=== PATIENT | female | born 1970 | race American Indian/Alaskan Native ===

== ENCOUNTER 2020-10-19 16:26 | Emergency (ER) | payer SELFPAY ==
[2020-10-19 17:26] LABS: Basophils % (Auto) 0.5 % (0.0-1.8); Eosinophils % (Auto) 0.2 % (0.0-4.3); Hematocrit 42.6 % (30.3-42.9); Hemoglobin 14.5 gm/dl (10.1-14.3); Lymphocytes # (Auto) 1.4 K/mm3 (1.2-5.4); Lymphocytes % (Auto) 15.5 % (13.4-35.0); Mean Corpuscular HGB Conc 34 % (30-34); Mean Corpuscular Volume 93 fl (79-97); Monocytes # (Auto) 0.3 K/mm3 (0.0-0.8); Monocytes % (Auto) 3.1 % (0.0-7.3); Platelet Count 272 K/mm3 (140-440); Red Blood Count 4.58 M/mm3 (3.65-5.03); Red Cell Distribution Width 14.4 % (13.2-15.2)
[2020-10-19 17:47] LABS: Alanine Aminotransferase 13 units/L (7-56); Albumin 4.9 g/dL (3.9-5); Blood Urea Nitrogen 7 mg/dL (7-17); Calcium 9.2 mg/dL (8.4-10.2); Hemolysis Index 171
[2020-10-19 17:51] LABS: BUN/Creatinine Ratio 14
[2020-10-19] MEDS ORDERED: dexAMETHasone 20 MG/5 ML VIAL IV ONE (23:35)
[2020-10-19] MEDS ORDERED: ACETAMINOPHEN 325 MG TAB PO ONE (23:35)
[2020-10-19] MEDS ORDERED: BUTALB/ACETAMINOPHEN/CAFFEINE TAB PO ONE (23:35)
[2020-10-19] MEDS ORDERED: ONDANSETRON 4 MG ODT TAB PO ONE (23:36)
--- NOTE | 2020-10-19 23:37 | Emergency Department Report ---
<TIERA ALDRICH III Ankush - Last Filed: 10/20/20 02:05> ED General Adult HPI - General Chief complaint: Headache Stated complaint: HEADACHE Time Seen by Provider: 10/19/20 23:24 - Related Data Previous Rx's Medication Instructions Recorded Last Taken Type Aspirin [Aspirin BABY CHEW TAB] 81 mg PO QDAY #30 tab.chew 12/12/14 Unknown Rx Famotidine [Pepcid] 20 mg PO BID #30 tablet 12/12/14 Unknown Rx Metoprolol [Lopressor TAB] 6.25 mg PO BID #30 tablet 12/12/14 Unknown Rx Nitroglycerin [Nitrostat] 0.4 mg SL Q5M PRN #10 tab 12/12/14 Unknown Rx Rosuvastatin (Nf) [Crestor] 20 mg PO QHS #30 tablet 12/12/14 Unknown Rx lisinopriL [Zestril TAB] 5 mg PO QDAY #30 tablet 12/12/14 Unknown Rx Allergies Allergy/AdvReac Type Severity Reaction Status Date / Time adhesive Allergy Swelling Verified 12/12/14 11:51 ED Past Medical Hx - Medications Home Medications: Home Medications Medication Instructions Recorded Confirmed Last Taken Type Aspirin [Aspirin BABY CHEW TAB] 81 mg PO QDAY #30 tab.chew 12/12/14 Unknown Rx Famotidine [Pepcid] 20 mg PO BID #30 tablet 12/12/14 Unknown Rx Metoprolol [Lopressor TAB] 6.25 mg PO BID #30 tablet 12/12/14 Unknown Rx Nitroglycerin [Nitrostat] 0.4 mg SL Q5M PRN #10 tab 12/12/14 Unknown Rx Rosuvastatin (Nf) [Crestor] 20 mg PO QHS #30 tablet 12/12/14 Unknown Rx lisinopriL [Zestril TAB] 5 mg PO QDAY #30 tablet 12/12/14 Unknown Rx ED Course - Reevaluation(s) Reevaluation #1: I reviewed the findings and management of this patient in real-time and I have personally seen and examined this patient and participated in the decision making for this patient with the midlevel. Patient is a 49-year-old female that presents emergency room for headache and dizziness. Patient states her headache is severe. I examined the patient. Patient has a normal pupillary response, pupils are PERRL. CV exam is normal and has a normal S1 and S2 and no murmurs. Lung sounds are clear to auscultation. Patient's head CT shows a cerebellar bleed. I discussed the case with our neurosurgeon already. I discussed the plan of care with the patient and the patient agrees with plan of care and transfer. The midlevel will discuss the case with a receiving hospital. Patient given a gram of Keppra. Patient is already been started on her nicardipine drip. Patient will be given Dilaudid for her pain. I discussed all results and clinical findings with patient. I discussed plan of care with patient. Patient agrees with plan of care. Patient is stable for transfer. 10/20/20 01:26 Reevaluation #2: Patient's blood pressure is improving. Patient states her pain is better. Patient is ready for transfer. Patient has been accepted. 10/20/20 02:16 - Consultations Consultation #1: I discussed the case with our neurosurgeon, Dr. Schulz. Dr. Schulz states that the patient needs to be transferred and keep a blood pressure less than 140 and give the patient a gram of Keppra. 10/20/20 01:01 ED Medical Decision Making - Lab Data Result diagrams: 10/19/20 17:13 10/19/20 17:13 Critical Care Time: Yes Critical care time in (mins) excluding proc time.: 35 Critical Care Time: 35 minutes ED Disposition Clinical Impression: Hemorrhagic cerebellum, Acute headache Disposition: [id number] ANOTHER TYPE HLTHCARE Condition: Stable Referrals: [facility] KARLA [Primary Care Provider] - 3-5 Days <MARCELO COYNE - Last Filed: 10/20/20 06:29> ED General Adult HPI - General Source: patient Mode of arrival: Ambulatory Limitations: No Limitations - History of Present Illness Initial comments: 49-year-old -[place] female presents with complaints of headache and dizziness x today. Patient reports she was at work and suddenly started to feel as if she was getting overheated and dizzy. She reports the headache started shortly after. She describes the headache as pounding and in the frontal portion of her head. Patient denies vision changes, numbness/tingling/weakness in her limbs, confusion, memory loss, or difficulty with speech/ambulation. No prior history of migraines per patient. She does report some nausea. Patient also denies any head injuries, fever/chills/sweats, or neck pain/stiffness. She admits to history of hypertension, however states she was taken off of her blood pressure medications by her PCP 6 months ago after losing weight. Severity scale (0 -10): 10 Quality: constant Improves with: movement Treatments Prior to Arrival: none ED Review of Systems ROS: Stated complaint: HEADACHE Other details as noted in HPI Constitutional: denies: chills, diaphoresis, fever, malaise Eyes: denies: eye pain, vision change Respiratory: denies: cough, shortness of breath Cardiovascular: denies: chest pain Endocrine: denies: excessive sweating Gastrointestinal: nausea. denies: abdominal pain, vomiting Genitourinary: denies: urgency, dysuria, frequency, hematuria Musculoskeletal: denies: back pain, joint swelling Skin: denies: rash, lesions, change in color Neurological: headache. denies: weakness, numbness, paresthesias, confusion, abnormal gait, vertigo Hematological/Lymphatic: denies: swollen glands ED Past Medical Hx - Past Medical History Previous Medical History?: Yes Hx Hypertension: Yes Hx Congestive Heart Failure: No Hx Diabetes: No Hx Asthma: No Hx COPD: No - Surgical History Past Surgical History?: Yes Additional Surgical History: hysterectomy - Social History Smoking Status: Current Every Day Smoker Substance Use Type: None ED Physical Exam - General Limitations: No Limitations General appearance: alert, in no apparent distress - Head Head exam: Present: atraumatic, normocephalic - Eye Eye exam: Present: normal appearance, PERRL, EOMI. Absent: scleral icterus - ENT ENT exam: Present: mucous membranes moist - Neck Neck exam: Present: normal inspection, full ROM. Absent: tenderness - Respiratory Respiratory exam: Present: normal lung sounds bilaterally. Absent: respiratory distress - Cardiovascular Cardiovascular Exam: Present: regular rate, normal rhythm. Absent: systolic murmur, diastolic murmur, rubs, gallop - GI/Abdominal GI/Abdominal exam: Present: soft. Absent: tenderness - Extremities Exam Extremities exam: Present: full ROM - Back Exam Back exam: Present: full ROM - Neurological Exam Neurological exam: Present: alert, oriented X3, CN II-XII intact, normal gait. Absent: motor sensory deficit - Expanded Neurological Exam Expanded Neurological exam: Present: other (Unable to complete full neuro exam due to patient's pain level) Cerebellar function: Heel to [place]: Normal Sensory exam: Upper Extremity Light Touch: Normal, Lower Extremity Light Touch: Normal Motor strength exam: RUE: 5, LUE: 5, RLE: 5, LLE: 5 Best Eye Response (Will[place]): (4) open spontaneously Best Motor Response (Meggan): (6) obeys commands Best Verbal Response (Meggan): (5) oriented [place] Total: 15 - Psychiatric Psychiatric exam: Present: normal affect, normal mood - Skin Skin exam: Present: warm, dry, intact, normal color. Absent: rash, cyanosis, diaphoretic, erythema, petechiae, pallor ED Course Vital Signs 10/19/20 10/20/20 10/20/20 16:31 01:41 01:46 Temperature 97.3 F L Pulse Rate 68 62 Respiratory 18 18 10 L Rate Blood Pressure 192/102 Blood Pressure [Left] O2 Sat by Pulse 100 Oximetry 10/20/20 10/20/20 10/20/20 01:48 02:00 02:15 Temperature Pulse Rate 55 L 57 L 68 Respiratory 14 11 L 12 Rate Blood Pressure 146/91 122/75 Blood Pressure 162/97 [Left] O2 Sat by Pulse 98 97 98 Oximetry 10/20/20 10/20/20 10/20/20 02:30 02:45 03:00 Temperature Pulse Rate 68 71 61 Respiratory 11 L 12 12 Rate Blood Pressure 122/78 120/78 124/77 Blood Pressure [Left] O2 Sat by Pulse 98 98 99 Oximetry 10/20/20 10/20/20 10/20/20 03:18 03:30 03:46 Temperature Pulse Rate 68 73 Respiratory 13 12 Rate Blood Pressure 132/74 122/74 124/77 Blood Pressure [Left] O2 Sat by Pulse 97 97 96 Oximetry 10/20/20 10/20/20 10/20/20 04:00 04:16 04:30 Temperature Pulse Rate 69 70 69 Respiratory 12 12 12 Rate Blood Pressure 124/69 124/69 126/72 Blood Pressure [Left] O2 Sat by Pulse 97 97 95 Oximetry - Reevaluation(s) Reevaluation #3: 10/20/20 03:01 Blood pressure noted to be 120/78. Patient states her current pain is at a 2/10 in severity. Nurse informed to obtain urine for drug screen - Consultations Consultation #2: 10/20/20 02:56 Follow-up with Dr. Casarez, neurosurgery @ [facility] will accept patient. Patient to be transfer ED to [facility]. Dr. Casarez also recommends keeping patient's blood pressure <140/90. Dates he agrees with the Cardene drip. Also requests urine drug screen. ED Medical Decision Making - Lab Data Result diagrams: 10/19/20 17:13 10/19/20 17:13 Lab Results 10/19/20 10/19/20 10/19/20 Range/Units 17:13 17:13 17:13 WBC 9.4 (4.5-11.0) K/mm3 RBC 4.58 (3.65-5.03) M/mm3 Hgb 14.5 H (10.1-14.3) gm/dl Hct 42.6 (30.3-42.9) % MCV 93 (79-97) fl MCH 32 (28-32) pg MCHC 34 (30-34) % RDW 14.4 (13.2-15.2) % Plt Count 272 (140-440) K/mm3 Lymph % (Auto) 15.5 (13.4-35.0) % Frio % (Auto) 3.1 (0.0-7.3) % Eos % (Auto) 0.2 (0.0-4.3) % Baso % (Auto) 0.5 (0.0-1.8) % Lymph # (Auto) 1.4 (1.2-5.4) K/mm3 Frio # (Auto) 0.3 (0.0-0.8) K/mm3 Eos # (Auto) 0.0 (0.0-0.4) K/mm3 Baso # (Auto) 0.0 (0.0-0.1) K/mm3 Seg Neutrophils % 80.7 H (40.0-70.0) % Seg Neutrophils # 7.6 (1.8-7.7) K/mm3 Sodium 134 L (137-145) mmol/L Potassium 4.9 (3.6-5.0) mmol/L Chloride 97.9 L (98-107) mmol/L Carbon Dioxide 27 (22-30) mmol/L Anion Gap 14 mmol/L BUN 7 (7-17) mg/dL Creatinine 0.5 L (0.6-1.2) mg/dL Estimated GFR > 60 ml/min BUN/Creatinine Ratio 14 % Glucose 190 H (65-100) mg/dL Calcium 9.2 (8.4-10.2) mg/dL Total Bilirubin 0.40 (0.1-1.2) mg/dL AST 23 (5-40) units/L ALT 13 (7-56) units/L Alkaline Phosphatase 67 (35-129) units/L Total Protein 8.0 (6.3-8.2) g/dL Albumin 4.9 (3.9-5) g/dL Albumin/Globulin Ratio 1.6 % HCG, Quant 0.779 (0-4) mIU/mL - Radiology Data Radiology results: report reviewed Examination: CT of the head without contrast Clinical information: Hypertension Comparison: None Technical: Multiple axial CT images of the head were obtained without intravenous contrast. Sagittal and coronal reformats were obtained. All CTs at this facility utilize dose reduction techniques including automated exposure control, iterative reconstruction and weight based dosing when appropriate to reduce patient radiation dose to as low as reasonable achievable. Findings: INTRACRANIAL CONTENTS: There is a focus of intraparenchymal hemorrhage within the left cerebellar hemisphere measuring 1.7 x 2.3 cm. No significant mass effect or midline shift is identified. There is a trace amount of hemorrhage within the fourth ventricle. ORBITS: The bilateral orbits and globes appear normal SKULL: No acute bony abnormality is visualized. PARANASAL SINUSES / MASTOID AIR CELLS: Paranasal sinuses and mastoid air cells appear clear. Impression: 1. Intraparenchymal hemorrhage within the left cerebellar hemisphere as described. There is a trace amount of intraventricular extension to the fourth ventricle. - Medical Decision Making 49-year-old -[place] female presents with complaints of headache and dizziness x today. Patient reports she was at work and suddenly started to feel as if she was getting overheated and dizzy. She reports the headache started shortly after. She describes the headache as pounding and in the frontal portion of her head. Patient denies vision changes, numbness/tingling/weakness in her limbs, confusion, memory loss, or difficulty with speech/ambulation. No prior history of migraines per patient. She does report some nausea. Patient also denies any head injuries, fever/chills/sweats, or neck pain/stiffness. She admits to history of hypertension, however states she was taken off of her blood pressure medications by her PCP 6 months ago after losing weight. Patient is neurologically intact on exam. Admits to thunderclap onset of headache. No significant abnormalities noted on labs. CT head shows the following: Intraparenchymal hemorrhage within the left cerebellar hemisphere as described. There is a trace amount of intraventricular extension to the fourth ventricle. Discussed patient with Dr. Potts who spoke with Dr. Schulz, neurosurgery-recommended [facility]. I spoke with Dr. Casarez, [facility] neurosurgery patient to be transferred to [facility]. Current blood pressure is within goal of <140/90. Pain is well controlled. Drug screen pending per Dr. Casarez's request. She remains neurologically intact Critical care attestation.: If time is entered above; I have spent that time in minutes in the direct care of this critically ill patient, excluding procedure time. ED Disposition Is pt being admited?: No
[2020-10-20] MEDS ORDERED: levETIRAcetam 1000 MG/NS 0.75% 1,000 MG/100 ML BAG IV ONE (01:05)
[2020-10-20] MEDS ORDERED: niCARdipine DRIP 40 MG/200 ML BAG IV ONE (01:05)
[2020-10-20] MEDS ORDERED: ONDANSETRON 4 MG/2 ML INJ IV ONE (01:07)
[2020-10-20] MEDS ORDERED: HYDROmorphone 1 MG/1 ML INJ IV ONE (01:07)
--- NOTE | 2020-10-20 01:09 | Cat Scan Report ---
Examination: CT of the head without contrast Clinical information: Hypertension Comparison: None Technical: Multiple axial CT images of the head were obtained without intravenous contrast. Sagittal and coronal reformats were obtained. All CTs at this facility utilize dose reduction techniques inc luding automated exposure control, iterative reconstruction and weight based dosing when appropriate to reduce patient radiation dose to as low as reasonable achievable. Findings: INTRACRANIAL CONTENTS: There is a focus of intraparenchymal hemorrhage within the left cerebellar hem isphere measuring 1.7 x 2.3 cm. No significant mass effect or midline shift is identified. There is a trace amount of hemorrhage within the fourth ventricle. ORBITS: The bilateral orbits and globes appear normal SKULL: No acute bony abnormality is visualized. PARANASAL SINUSES / MASTOID AIR CELLS: Paranasal sinuses and mastoid air cells appear clear. Impression: 1. Intraparenchymal hemorrhage within the left cerebellar hemisphere as described. There is a trace amount of intraventricular extension to the fourth ventricle. Positive critical value of intracranial hemorrhage was identified at 12:01 AM Central time and person johny communicated to Dr. Desai at 12:05 AM Central time. Signer Name: Malena Hartman MD Signed: 10/20/2020 1:04 AM Workstation Name: [id number]
[2020-10-20 02:12] LABS: INR 1.06 (0.87-1.13); Partial Thromboplastin Time 25.8 Sec. (24.2-36.6)
[2020-10-20 03:52] LABS: Amphetamine Screen,Urine PRESUMPTIVE NEGATIVE; Benzodiazepines Screen,Urine PRESUMPTIVE NEGATIVE; Cannabinoid Screen,Urine PRESUMPTIVE NEGATIVE; Cocaine Screen,Urine PRESUMPTIVE NEGATIVE; Methadone Screen,Urine PRESUMPTIVE NEGATIVE; Opiate Screen,Urine PRESUMPTIVE NEGATIVE
[2020-10-20 04:38] VITALS: BP 126/72
== END 2020-10-20 04:50 | disposition other institution (70) ==
LOC: ED 16:26
DX: I61.4 Nontraumatic intracerebral hemorrhage in cerebellum (principal); R51.9 Headache, unspecified; I10 Essential (primary) hypertension; F17.200 Nicotine dependence, unspecified, uncomplicated; Z79.899 Other long term (current) drug therapy; Z91.048 Other nonmedicinal substance allergy status; Z90.710 Acquired absence of both cervix and uterus
CPT/HCPCS: 36415; 70450; 80053; 80307; 84702; 85025; 85610; 85730; 96365; 96366; 96375; 99285; J1170; J1953; J2405